=== PATIENT | male | born 1960 | race African-American/Black ===

== ENCOUNTER 2017-11-20 15:08 | Inpatient (IN) | payer OTHER ==
[~2017-11-20] VITALS: Ht 175.3 cm; Wt 99.5 kg
--- NOTE | ~2017-11-20 | EKG ---
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 : 1960 Requested By: Emilee Fontana Order Number: [id number] MD: Miles Argueta Measurements Intervals [place] Rate: 98 P: 35 MD: 143 QRS: 21 QRSD: 94 T: 137 QT: 369 QTc: 472 Interpretive Statements Sinus rhythm Abnrm T, consider ischemia, anterolateral lds Baseline wander in lead(s) V3 Compared to ECG 11/23/2017 10:22:30 No significant change was found Electronically Signed On 11-27-2017 8:35:46 CDT by Miles Argueta [email or web address] <ELECTRONICALLY SIGNED> By: Miles Argueta MD, [facility] 11/27/17 0835 [phone] Miles Argueta MD, [facility] /EPI
--- NOTE | ~2017-11-20 | HC ---
[facility] [place] [address] CONSULTATION Name: LUDMILA GASTON Room #: 215-P [facility] IN M.R.#: [id number] Admission: 11/20/17 Attend Phys: Evelia Jerez Discharge: Date of : 64 Report #: [id number] THIS REPORT FOR: //name// CC: Brian Jerez DATE OF SERVICE: 11/30/2017 HISTORY OF PRESENT ILLNESS: The patient is a 57-year-old male with history of coronary artery disease with prior stents in 2011 and 2016, admitted through [facility] with multivessel coronary artery disease, unstable angina, was transferred to [facility] and underwent coronary bypass grafting x 3 on 11/26. He had some acute renal insufficiency. He had some hypertension and drowsiness. He is doing better now. We are seeing him in rehabilitation medicine consultation. PAST MEDICAL HISTORY: Sarcoidosis on chronic prednisone and on disability. History of diabetes mellitus, hypertension, hyperlipidemia, and exogenous obesity. SOCIAL HISTORY: Lives in a house with and children. No stairs. Is premorbidly independent without gait aids. Disabled, as noted above. Lives in [place]. ALLERGIES: No known drug allergies. HABITS: Former tobacco smoker, 7 cigarettes per day for 10 years, quit in May 2017. Alcohol just on special occasions. FAMILY HISTORY: Significant for heart disease. REVIEW OF SYSTEMS: He does have a history of obstructive sleep apnea. He has had a right shoulder surgery. He does have history of elevated lipids. Did not offer any complaints of chest pain, shortness of breath or abdominal discomfort. No focal extremity pain complaints. PHYSICAL EXAMINATION: GENERAL: A 57-year-old overweight, pleasant male, in no obvious distress. The patient is alert, pleasant. VITAL SIGNS: Last recorded temperature 98, pulse 80, respirations 18, and blood pressure 107/69. HEENT: Appeared to be benign. NEUROLOGIC: Cranial nerves are grossly intact. He has a midline sternal incision. Functional range of motion of the upper extremities, no obvious focal weakness. DTRs are trace to 1. Lower extremities, no focal calf swelling, functional range of motion, strength is grade 4-/5. DTRs are trace to 1. He [address] [address] CONSULTATION Name: LUDMILA GASTON Room #: 215-P [facility] IN .R.#: [id number] Admission: 11/20/17 Attend Phys: Evelia Jerez Discharge: Date of : 64 Report #: [id number] was min assist with sit to stand. Gait was min assist to 12 feet, no assistive device. ASSESSMENT: A 57-year-old -Cub[place] male with the following problems: 1. Medical complexity with generalized debilitation. 2. Multivessel coronary artery disease with unstable angina, status post coronary artery bypass grafting x 3 on 11/26. 3. Acute renal insufficiency. 4. Sarcoidosis. 5. Diabetes mellitus type 2. 6. Hypertension. 7. Hyperlipidemia. 8. Exogenous obesity. PLAN: The patient is hoping to go directly home versus possibly a short acute inpatient rehab stay over in [place]. Discussion with ____hardik noted the patient could stay here for further recuperation through tomorrow or Thursday prior to discharge. He is to continue with the therapies at this time and we will see how he progresses and go from there. We can assist with the rehab contact in [place], if appropriate. Thank you for asking us to assist in this patient's care. By: [id number] Rene Peters MD /nt
--- NOTE | ~2017-11-20 | EKG ---
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
--- NOTE | ~2017-11-20 | CNG ---
[facility] [place] [address] CYTO-NONGYN REPORT PROCEDURE Name: LUDMILA GASTON Room #: 215-P ADM IN M.R.#: [id number] Admission: 11/20/17 Date of : 64 Discharge: Report #: [id number] Path Case #: [id number] CYTOPATHOLOGY REPORT COLLECTION DATE: 12/01/2017 RECEIVED DATE: 12/01/2017 SUBMITTING PHYS: Dr. Evelia Jerez OTHER PHYS: Dr. Brian Gastelum CLINICAL HISTORY: Chest pain, CAD SPECIMEN(S) RECEIVED: A.Pleural fluid, Left * * * * * * * * * * * * FINAL DIAGNOSIS: A. Left Pleural fluid: - No malignant cells identified. Paucicellular specimen with scant cellularity showing rare acute and chronic inflammatory cells. No definitive mesothelial cells identified. PATHOLOGIST: Rocio Carver M.D. REPORT ELECTRONICALLY SIGNED BY: Rocio Carver M.D. DATE/TIME: 12/02/2017 12:11 * * * * * * * * * * * * GROSS PATHOLOGY: A. Pleural fluid, Left: The specimen is submitted unfixed, labeled "Ludmila Gaston". Received by the Cytology Department is 32 mL of cloudy red fluid. One ThinPrep slide and a formalin fixed cell block were prepared. (mm 12.01.2017) BUSINESS OPERATIONS COORDINATOR(S): KENDY Marinelli([facility]) INITIAL CPT CODE(S): A; 43870, 95860 Professional services performed by [facility] at [facility] [address], [place] [address] Technical services performed by [facility] at [address] [place] [address]., [address], [place] [address]. [facility] [address] [place] [address], [facility] [address] [place], [place] [address] [place] [address] [place] [address] CYTO-NONGYN REPORT PROCEDURE Name: LUDMILA GASTON Room #: 215-P ADM IN M.R.#: [id number] Admission: 11/20/17 Date of : 64 Discharge: Report #: [id number] Path Case #: [id number] PHONE: [phone] DIRECTOR: Gonzales Gonzalez M.D. * * * END OF REPORT * * *
--- NOTE | ~2017-11-20 | 2DMMODE ---
[facility] [address] [address] 2 D/M-MODE ECHOCARDIOGRAM Name: LUDMILA GASTON Room #: 209-P ADM IN .R.#: [id number] Admission: 11/20/17 Attend Phys: Evelia Emery Discharge: Date of : 64 Date of Service: 11/24/17 0830 Report #: [id number] THIS REPORT FOR: //name// APPROVED REPORT Study performed: 11/23/2017 12:19:40 EXAM: Comprehensive 2D, Doppler, and color-flow Echocardiogram Patient Location: Echo lab Room #: 209 Status: routine BSA: 2.16 HR: 55 bpm BP: 104/71 mmHg Rhythm: NSR Other Information Study Quality: Adequate Indications Pre-Op CABG. Hx: CAD, stent, HTN, HLP, DM, tob abuse 2D Dimensions RVDd: 34.95 mm LVEF(%): 49.35 (>50%) IVSd: 12.79 (7-11mm) LVOT Diam: 22.39 (18-24mm) LVDd: 53.43 mm PWd: 9.96 (7-11mm) Ascending Ao: 37.81 (22-36mm) LVDs: 39.96 (25-40mm) Aortic Root: 35.53 mm Rich's LVEF: 49.35 % Volumes Left Atrial Volume (Systole) Single Plane 4CH: 42.50 mL Single Plane 2CH: 62.01 mL LA ESV Index: 27.00 mL/m2 Aortic Valve AoV Peak Jt.: 1.42 m/s AO Peak Gr.: 8.08 mmHg LVOT Max P.75 mmHg LVOT Max V: 0.97 m/s ALY Vmax: 2.68 cm2 Mitral Valve E/A Ratio: 0.9 MV Decel. Time: 297.79 ms [facility] [address] [address] 2 D/M-MODE ECHOCARDIOGRAM Name: LUDMILA GASTON Room #: 209-P [facility] IN ..#: [id number] Admission: 11/20/17 Attend Phys: Evelia Emery Discharge: Date of : 64 Date of Service: 11/24/17 0830 Report #: [id number] MV E Max Jt.: 0.58 m/s MV A Jt.: 0.65 m/s MV PHT: 86.36 ms IVRT: 92.27 ms Pulmonary Valve PV Peak Jt.: 0.83 m/s PV Peak Gr.: 2.77 mmHg Pulmonary Vein P Vein S: 0.67 m/s P Vein D: 0.37 m/s P Vein S/D Ratio: 1.81 Tricuspid Valve TR Peak Jt.: 2.19 m/s RAP Estimate: 5.00 mmHg TR Peak Gr.: 19.21 mmHg PA Pressure: 24.00 mmHg Left Ventricle The left ventricle is normal size. Severe hypokinesis of anteroseptum and mild basal inferior hypokinesis. Mild to moderate concentric left ventricular hypertrophy. Left ventricular systolic function is normal. LVEF is 40%. Mild diastolic dysfunction is present (impaired relaxation pattern). Right Ventricle The right ventricle is normal size. The right ventricular systolic function is normal. Atria The left atrium size is normal. The right atrium size is normal. Aortic Valve Aortic valve is mildly calcified. No aortic regurgitation is present. There is no aortic valvular stenosis. Mitral Valve The mitral valve is normal in structure. There is no mitral valve regurgitation noted. No evidence of mitral valve stenosis. Tricuspid Valve The tricuspid valve is normal in structure. Trace tricuspid regurgitation. Estimated PAP is 25mmHg. Pulmonic Valve [address] [address] 2 D/M-MODE ECHOCARDIOGRAM Name: MARILINLUDMILA Room #: 209-P [facility] IN [facility]#: [id number] Admission: 11/20/17 Attend Phys: Evelia Emery Discharge: Date of : 64 Date of Service: 11/24/17 0830 Report #: [id number] The pulmonary valve is normal in structure. Trace pulmonic regurgitation. Great Vessels The aortic root is normal in size. The ascending aorta is normal in size. IVC is normal in size and collapses >50% with inspiration. Pericardium There is no pericardial effusion. <Conclusion> LVEF is 40%. Severe hypokinesis of anteroseptum and mild basal inferior hypokinesis. Mild diastolic dysfunction is present (impaired relaxation pattern). Aortic valve is mildly calcified. There is no aortic valvular stenosis. No aortic regurgitation is present. The mitral valve is normal in structure. There is no mitral valve regurgitation noted. No evidence of mitral valve stenosis. There is no pericardial effusion. <ELECTRONICALLY SIGNED> By: Magan Mendez MD, FACC 11/24/17829 9 9 Magan Mendez MD, FACC /INF
--- NOTE | ~2017-11-20 | EKG ---
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 : 1960 Requested By: Emilee Fontana Order Number: [id number] MD: Miles Argueta Measurements Intervals [place] Rate: 68 P: 16 [place]: 121 QRS: 20 QRSD: 114 T: 122 QT: 455 QTc: 484 Interpretive Statements Sinus rhythm Abnrm T, probable ischemia, anterolateral lds Baseline wander in lead(s) V6 Compared to ECG 11/23/2017 10:22:30 No significant change was found Electronically Signed On 11-27-2017 8:23:28 CDT by Miles Argueta [email or web address] <ELECTRONICALLY SIGNED> By: Miles Argueta MD, [facility] 11/27/17 0823 [id number] 44 Miles Argueta MD, [facility] /EPI
[~2017-11-20 15:08] MED LIST: ASPIR 8181 MG PO; BACTRIM DS TAB1 EACH PO; CARVEDILOL12.5 MG; CITRACAL + BON1 EACH; COQ-10100 MG; JANUMET 50-1,01 EACH PO; LEVAQUIN 500 M500 M2 PO; LIPITOR10 MG PO; LISINOPRIL10 MG PO; METFORMIN HCL500 MG PO; NORCO 5-325 TA1 EACH PO; NORVASC5 MG; OMEGA-31000 M1; OSTERA TABLET1 EAC1; PLAVIX 75 MG TA75 M1 PO; PREDNISONE 10 M10 M1 PO; RANEXA500 MG; TRAMADOL 50 MG50 MG PO; UNICOMPLEX M TA1 TA1
[2017-11-20 21:08] VITALS: BP 104/73
[2017-11-21 00:23] VITALS: BP 99/64
[2017-11-21 05:01] VITALS: BP 104/71
[2017-11-21 08:00] VITALS: BP 99/67
[2017-11-21] MEDS ORDERED: PREDNISONE 5 MG5 M1 PO (09:49)
[2017-11-21 12:00] VITALS: BP 114/71
[2017-11-21 15:50] VITALS: BP 100/67
[2017-11-21 20:33] VITALS: BP 120/82
[2017-11-22 04:42] VITALS: BP 97/66
[2017-11-22 08:30] VITALS: BP 104/69
[2017-11-22 20:05] VITALS: BP 103/74
[2017-11-23] VITALS (10 sets, daily range): BP systolic 65–129; BP diastolic 35–97
[2017-11-23 04:19] LABS: ABSOLUTE NEUTROPHILS 3.9 thou/uL (1.4-8.2); BASOPHILS 0.3 % (0.0-2.0); EOSINOPHILS 3.4 % (0.0-3.0); HEMOGLOBIN 12.4 gm/dL (14.0-18.0); MCH 25.5 pg (26.0-34.0); MCHC 33.6 g/dL (28.0-37.0); MCV 75.7 fL (80.0-100.0); MONOCYTES 11.6 % (1.0-8.0); PLATELET COUNT 194 thou/uL (150-400); POLYS 68.7 % (36.0-66.0); RBC 4.88 mil/uL (4.50-6.00); RDW 15.3 % (10.5-14.5); WBC 5.7 thou/uL (4.0-11.0)
[2017-11-23 04:25] LABS: CALCIUM 9.3 mg/dL (8.5-10.1); MAGNESIUM 1.7 mg/dL (1.8-2.4); POTASSIUM 3.9 mmol/L (3.5-5.1)
[2017-11-23 11:46] LABS: APTT 32.2 Seconds (24.5-32.8); PROTIME 10.7 Seconds (9.3-11.4)
[2017-11-23 14:29] LABS: URINE BILIRUBIN NEGATIVE (Negative); URINE BLOOD NEGATIVE (Negative); URINE CLARITY CLEAR; URINE COLOR YELLOW; URINE GLUCOSE-RANDOM* NEGATIVE (Negative); URINE KETONES NEGATIVE (Negative); URINE LEUKOCYTES-REFLEX NEGATIVE (Negative); URINE NITRITE-REFLEX NEGATIVE (Negative); URINE PROTEIN (DIPSTICK) NEGATIVE (Negative); URINE UROBILINOGEN 0.2 E.U./dl (0.2-1.0)
[2017-11-24 04:55] VITALS: BP 120/81
[2017-11-24 06:32] LABS: ALBUMIN 3.3 g/dL (3.4-5.0); CALCIUM 8.9 mg/dL (8.5-10.1); CREATININE 0.9 mg/dL (0.7-1.3); POTASSIUM 4.2 mmol/L (3.5-5.1); TOTAL BILIRUBIN 0.6 mg/dL (<0.1-1.0); TOTAL PROTEIN 6.6 g/dL (6.4-8.2)
[2017-11-24 14:13] LABS: GLYCOHEMOGLOBIN (HGB A1C) 6.9 % (4.8-5.6)
[2017-11-24 15:09] VITALS: BP 123/83
[2017-11-24 19:34] VITALS: BP 116/68
[2017-11-25 04:25] VITALS: BP 128/76
[2017-11-25 07:49] VITALS: BP 141/81
[2017-11-25 12:05] VITALS: BP 124/78
[2017-11-25 15:45] VITALS: BP 118/66
[2017-11-25 20:52] VITALS: BP 129/76
[2017-11-26] VITALS (17 sets, daily range): BP systolic 76–128; BP diastolic 49–90
[2017-11-26 03:40] LABS: HEMATOCRIT 34.1 % (42.0-52.0); HEMOGLOBIN 11.3 gm/dL (14.0-18.0); MCH 25.2 pg (26.0-34.0); MCHC 33.1 g/dL (28.0-37.0); MCV 76.1 fL (80.0-100.0); PLATELET COUNT 190 thou/uL (150-400); RBC 4.48 mil/uL (4.50-6.00); WBC 4.1 thou/uL (4.0-11.0)
[2017-11-26 04:02] LABS: ALBUMIN 3.1 g/dL (3.4-5.0); CALCIUM 8.8 mg/dL (8.5-10.1); CREATININE 0.9 mg/dL (0.7-1.3); MAGNESIUM 1.9 mg/dL (1.8-2.4); POTASSIUM 3.4 mmol/L (3.5-5.1); TOTAL BILIRUBIN 0.6 mg/dL (<0.1-1.0); TOTAL PROTEIN 6.8 g/dL (6.4-8.2)
[2017-11-26 06:10] LABS: ABSOLUTE NEUTROPHILS 2.7 thou/uL (1.4-8.2); LARGE PLATELETS OCCASIONAL; MYELOCYTES 2 %
[2017-11-26 13:11] LABS: HEMATOCRIT 23.8 % (42.0-52.0); MCH 25.6 pg (26.0-34.0); MCHC 33.6 g/dL (28.0-37.0); MCV 76.3 fL (80.0-100.0); RBC 3.11 mil/uL (4.50-6.00); RDW 14.7 % (10.5-14.5); WBC 10.7 thou/uL (4.0-11.0)
[2017-11-26 13:26] LABS: FIBRINOGEN 238.7 mg/dL (210-360); INR 1.2
[2017-11-26 13:28] LABS: PROTIME 11.9 Seconds (9.3-11.4)
[2017-11-26 13:57] LABS: POC BE 3 mmol/L (-2.0 to +3.0); POC CA IONIZED 4.2 mg/dL (4.5-5.3); POC GLUCOSE 183 mg/dL (70-99); POC HCO3 26.9 mmol/L (22.0-26.0); POC HEMOGLOBIN 8.8 g/dL (14.0-18.0); POC POTASSIUM 4.4 mmol/L (3.5-5.1); POC SODIUM 139 mmol/L (136-145); POC pCO2 36.2 mmHg (35.0-45.0); POC pH 7.478 (7.360-7.450)
[2017-11-26 13:57] LABS: POC BE 2 mmol/L (-2.0 to +3.0); POC CA IONIZED 6.1 mg/dL (4.5-5.3); POC GLUCOSE 147 mg/dL (70-99); POC HCO3 27.1 mmol/L (22.0-26.0); POC HEMOGLOBIN 8.2 g/dL (14.0-18.0); POC POTASSIUM 3.6 mmol/L (3.5-5.1); POC SODIUM 141 mmol/L (136-145); POC pCO2 43.4 mmHg (35.0-45.0); POC pH 7.403 (7.360-7.450)
[2017-11-26 13:57] LABS: POC BE 5 mmol/L (-2.0 to +3.0); POC CA IONIZED 4.7 mg/dL (4.5-5.3); POC GLUCOSE 177 mg/dL (70-99); POC HCO3 28.5 mmol/L (22.0-26.0); POC HEMOGLOBIN 10.2 g/dL (14.0-18.0); POC POTASSIUM 3.7 mmol/L (3.5-5.1); POC SODIUM 142 mmol/L (136-145); POC pH 7.451 (7.360-7.450)
[2017-11-26 13:57] LABS: POC BE 6 mmol/L (-2.0 to +3.0); POC CA IONIZED 4.7 mg/dL (4.5-5.3); POC GLUCOSE 163 mg/dL (70-99); POC HCO3 29.7 mmol/L (22.0-26.0); POC HEMOGLOBIN 10.5 g/dL (14.0-18.0); POC POTASSIUM 3.8 mmol/L (3.5-5.1); POC SODIUM 141 mmol/L (136-145); POC pCO2 39.5 mmHg (35.0-45.0); POC pH 7.484 (7.360-7.450)
[2017-11-26 14:02] LABS: POC BE 2 mmol/L (-2.0 to +3.0); POC GLUCOSE 160 mg/dL (70-99); POC HCO3 27.1 mmol/L (22.0-26.0); POC HEMOGLOBIN 7.8 g/dL (14.0-18.0); POC POTASSIUM 3.7 mmol/L (3.5-5.1); POC SODIUM 139 mmol/L (136-145); POC pCO2 43.4 mmHg (35.0-45.0); POC pH 7.404 (7.360-7.450)
[2017-11-26 14:02] LABS: POC BE 4 mmol/L (-2.0 to +3.0); POC CA IONIZED 4.5 mg/dL (4.5-5.3); POC GLUCOSE 173 mg/dL (70-99); POC HCO3 27.8 mmol/L (22.0-26.0); POC HEMOGLOBIN 8.8 g/dL (14.0-18.0); POC POTASSIUM 3.8 mmol/L (3.5-5.1); POC SODIUM 143 mmol/L (136-145); POC pCO2 41.6 mmHg (35.0-45.0); POC pH 7.433 (7.360-7.450)
[2017-11-26 14:02] LABS: POC BE 1 mmol/L (-2.0 to +3.0); POC CA IONIZED 5.9 mg/dL (4.5-5.3); POC GLUCOSE 137 mg/dL (70-99); POC HCO3 26.4 mmol/L (22.0-26.0); POC HEMOGLOBIN 9.2 g/dL (14.0-18.0); POC POTASSIUM 3.8 mmol/L (3.5-5.1); POC SODIUM 142 mmol/L (136-145); POC pCO2 43.4 mmHg (35.0-45.0); POC pH 7.392 (7.360-7.450)
[2017-11-26 14:02] LABS: POC BE 2 mmol/L (-2.0 to +3.0); POC CA IONIZED 4.5 mg/dL (4.5-5.3); POC GLUCOSE 182 mg/dL (70-99); POC HCO3 26.1 mmol/L (22.0-26.0); POC HEMOGLOBIN 8.8 g/dL (14.0-18.0); POC POTASSIUM 3.7 mmol/L (3.5-5.1); POC SODIUM 142 mmol/L (136-145); POC pCO2 39.9 mmHg (35.0-45.0); POC pH 7.423 (7.360-7.450)
[2017-11-26 14:56] LABS: HEMATOCRIT 29.8 % (42.0-52.0); MCH 25.8 pg (26.0-34.0); MCHC 33.8 g/dL (28.0-37.0); MCV 76.3 fL (80.0-100.0); RBC 3.9 mil/uL (4.50-6.00); RDW 15.1 % (10.5-14.5); WBC 9.8 thou/uL (4.0-11.0)
[2017-11-26 14:58] LABS: HEMOGLOBIN 10.1 gm/dL (14.0-18.0)
[2017-11-26 15:02] LABS: CALCIUM 9.5 mg/dL (8.5-10.1); POTASSIUM 4.1 mmol/L (3.5-5.1)
[2017-11-26 15:09] LABS: INR 1.1
[2017-11-26 15:10] LABS: APTT 33.1 Seconds (24.5-32.8)
[2017-11-26 15:20] LABS: BE(vivo) -2.7 mmol/L (-2 to +3); HCO3 22.8 mmol/L (22.0-26.0); PO2 96.1 mmHg (80.0-100.0); pH 7.352 (7.360-7.450)
[2017-11-26 18:58] LABS: BE(vivo) -2.9 mmol/L (-2 to +3); HCO3 21.5 mmol/L (22.0-26.0); PCO2 35.9 mmHg (35.0-45.0); PO2 90.7 mmHg (80.0-100.0); pH 7.396 (7.360-7.450)
[2017-11-26 19:43] LABS: BE(vivo) -5.3 mmol/L (-2 to +3); HCO3 19.8 mmol/L (22.0-26.0); PCO2 37.1 mmHg (35.0-45.0); PO2 96.6 mmHg (80.0-100.0); pH 7.346 (7.360-7.450); sO2 97.1 % (92.0-98.0)
[2017-11-26 22:54] LABS: BE(vivo) -0.7 mmol/L (-2 to +3); HCO3 23.7 mmol/L (22.0-26.0); PCO2 37.4 mmHg (35.0-45.0); PO2 140.3 mmHg (80.0-100.0); pH 7.419 (7.360-7.450); sO2 98.8 % (92.0-98.0)
[2017-11-27] VITALS (17 sets, daily range): BP systolic 97–118; BP diastolic 56–82
[2017-11-27 04:23] LABS: CALCIUM 8.9 mg/dL (8.5-10.1); CREATININE 1.4 mg/dL (0.7-1.3); MAGNESIUM 1.8 mg/dL (1.8-2.4)
[2017-11-27 04:27] LABS: POTASSIUM 4.1 mmol/L (3.5-5.1)
[2017-11-27 04:30] LABS: HEMATOCRIT 22.7 % (42.0-52.0); HEMOGLOBIN 7.6 gm/dL (14.0-18.0); MCH 25.4 pg (26.0-34.0); MCHC 33.5 g/dL (28.0-37.0); MCV 75.9 fL (80.0-100.0); RBC 2.99 mil/uL (4.50-6.00); RDW 14.8 % (10.5-14.5); WBC 9.5 thou/uL (4.0-11.0)
[2017-11-27 14:52] LABS: BE(vivo) -0.8 mmol/L (-2 to +3); HCO3 23.1 mmol/L (22.0-26.0); PCO2 34.6 mmHg (35.0-45.0); PO2 57.4 mmHg (80.0-100.0); pH 7.442 (7.360-7.450); sO2 91.2 % (92.0-98.0)
[2017-11-27 20:39] LABS: BE(vivo) -1.8 mmol/L (-2 to +3); HCO3 21.7 mmol/L (22.0-26.0); PCO2 31.9 mmHg (35.0-45.0); PO2 58.7 mmHg (80.0-100.0); sO2 91.9 % (92.0-98.0)
[2017-11-28] VITALS (23 sets, daily range): BP systolic 84–141; BP diastolic 67–107
[2017-11-28 05:42] LABS: HEMATOCRIT 24.6 % (42.0-52.0); HEMOGLOBIN 8.3 gm/dL (14.0-18.0); MCH 25.7 pg (26.0-34.0); MCHC 33.5 g/dL (28.0-37.0); MCV 76.6 fL (80.0-100.0); RBC 3.22 mil/uL (4.50-6.00); RDW 15.6 % (10.5-14.5); WBC 13.4 thou/uL (4.0-11.0)
[2017-11-28 05:59] LABS: CALCIUM 9.3 mg/dL (8.5-10.1); CREATININE 1.3 mg/dL (0.7-1.3); MAGNESIUM 2.1 mg/dL (1.8-2.4); POTASSIUM 4.4 mmol/L (3.5-5.1)
[2017-11-28 15:08] LABS: BE(vivo) 1.8 mmol/L (-2 to +3); HCO3 25.7 mmol/L (22.0-26.0); PO2 60.4 mmHg (80.0-100.0); pH 7.459 (7.360-7.450); sO2 92.5 % (92.0-98.0)
[2017-11-29] VITALS (14 sets, daily range): BP systolic 108–142; BP diastolic 70–91
[2017-11-29 06:27] LABS: HEMATOCRIT 22.6 % (42.0-52.0); HEMOGLOBIN 7.6 gm/dL (14.0-18.0); MCHC 33.8 g/dL (28.0-37.0); MCV 76.8 fL (80.0-100.0); RBC 2.94 mil/uL (4.50-6.00); RDW 15.5 % (10.5-14.5); WBC 12.9 thou/uL (4.0-11.0)
[2017-11-29 06:41] LABS: CALCIUM 9.2 mg/dL (8.5-10.1); CREATININE 1.1 mg/dL (0.7-1.3)
[2017-11-29 15:01] LABS: URINE BILIRUBIN NEGATIVE (Negative); URINE BLOOD 2+ (Negative); URINE CLARITY CLEAR; URINE COLOR YELLOW; URINE GLUCOSE-RANDOM* TRACE (Negative); URINE KETONES NEGATIVE (Negative); URINE LEUKOCYTES-REFLEX NEGATIVE (Negative); URINE NITRITE-REFLEX NEGATIVE (Negative); URINE PROTEIN (DIPSTICK) NEGATIVE (Negative); URINE UROBILINOGEN 0.2 E.U./dl (0.2-1.0)
[2017-11-29 15:11] LABS: BACTERIA-REFLEX 1-9 Few /HPF (None Seen); CASTS None Seen /LPF (None Seen); CRYSTALS None Seen /LPF (None Seen); SQUAMOUS None Seen /LPF (0-3); URINE RBC 3-10 Few /HPF (0-2); URINE WBC-REFLEX 0-5 Rare /HPF (0-5)
[2017-11-30] VITALS (8 sets, daily range): BP systolic 107–142; BP diastolic 69–93
[2017-11-30 05:19] LABS: BASOPHILS 0.1 % (0.0-2.0); RBC 2.58 mil/uL (4.50-6.00); WBC 12.5 thou/uL (4.0-11.0)
[2017-11-30 05:21] LABS: ABSOLUTE NEUTROPHILS 11.4 thou/uL (1.4-8.2); HEMOGLOBIN 6.6 gm/dL (14.0-18.0); LYMPHOCYTES 3.1 % (24.0-44.0); MCH 25.5 pg (26.0-34.0); MCHC 33.3 g/dL (28.0-37.0); MCV 76.6 fL (80.0-100.0); MONOCYTES 6.3 % (1.0-8.0); PLATELET COUNT 194 thou/uL (150-400); POLYS 90.5 % (36.0-66.0); RDW 15.1 % (10.5-14.5)
[2017-11-30 05:33] LABS: HEMATOCRIT 19.7 % (42.0-52.0)
[2017-11-30 05:34] LABS: CALCIUM 9.3 mg/dL (8.5-10.1); CREATININE 1.2 mg/dL (0.7-1.3); POTASSIUM 3.9 mmol/L (3.5-5.1)
[2017-12-01 04:50] VITALS: BP 132/90
[2017-12-01 05:07] LABS: HEMATOCRIT 25.5 % (42.0-52.0); HEMOGLOBIN 8.5 gm/dL (14.0-18.0); MCH 25.7 pg (26.0-34.0); MCHC 33.4 g/dL (28.0-37.0); MCV 76.9 fL (80.0-100.0); PLATELET COUNT 242 thou/uL (150-400); RBC 3.31 mil/uL (4.50-6.00); RDW 17.9 % (10.5-14.5); WBC 10.6 thou/uL (4.0-11.0)
[2017-12-01 07:11] LABS: ABSOLUTE NEUTROPHILS 8.7 thou/uL (1.4-8.2); ANISOCYTOSIS 1+
[2017-12-01 07:40] VITALS: BP 167/110
[2017-12-01 11:26] LABS: CLARITY TURBID; COLOR RED; SOURCE LEFT CHEST; TOTAL VOLUME 64 mL
[2017-12-01 11:29] LABS: BF NUCLEATED CELLS 1687; BF RBC 699756
[2017-12-01 11:40] VITALS: BP 132/90
[2017-12-01 11:59] LABS: BF MACROPHAGE 7; BF NEUTROPHILS 52
[2017-12-01 12:46] LABS: SOURCE LEFT CHEST
[2017-12-01 15:50] VITALS: BP 110/80
[2017-12-01 20:52] VITALS: BP 117/55
[2017-12-02 03:46] LABS: CALCIUM 9.1 mg/dL (8.5-10.1); CREATININE 1.1 mg/dL (0.7-1.3); MAGNESIUM 1.9 mg/dL (1.8-2.4); POTASSIUM 3.7 mmol/L (3.5-5.1)
[2017-12-02 04:38] LABS: HEMATOCRIT 27.5 % (42.0-52.0); HEMOGLOBIN 9.1 gm/dL (14.0-18.0)
[2017-12-02 04:45] VITALS: BP 128/81
[2017-12-02 07:32] VITALS: BP 123/89
[2017-12-02 09:19] VITALS: BP 123/89
[2017-12-02 11:57] VITALS: BP 126/82
[2017-12-02] MEDS ORDERED: CARVEDILOL3.125 MG PO (12:27)
[2017-12-02] MEDS ORDERED: ASA5UEC PO (12:27)
[2017-12-02] MEDS ORDERED: PACERONE 200 M200 M1 PO (12:27)
[2017-12-02] MEDS ORDERED: HYDROCODONE-AP1 EAC6 PO (12:27)
[2017-12-02] MEDS ORDERED: LISINOPRIL5 MG PO (12:27)
[2017-12-02 12:44] VITALS: BP 123/89
[2017-12-02 16:08] LABS: BODY FLUID ALBUMIN 1.9 g/dL (()); BODY FLUID AMYLASE 35 U/L (()); BODY FLUID GLUCOSE 175 mg/dL (()); BODY FLUID LDH 726 IU/L (()); BODY FLUID PROTEIN 3.1 g/dL (())
== END 2017-12-02 14:09 | disposition home health service (06) | DRG 235 ==
LOC: 2N 15:08 → TBA 11-26 08:24 → ICU 11-26 14:59 → 2N 11-29 17:17 → ENTRNSPT 12-02 13:53 → EDTRNSPTSTS 12-02 13:56 → 2N 12-02 14:09
PROVIDERS: Hospitalist; Internal Medicine; Internal Medicine Cardiovascular Disease; Nurse Practitioner; Thoracic Surgery (Cardiothoracic Vascular Surgery)
DX: I25.110 Atherosclerotic heart disease of native coronary artery with unstable angina pectoris (principal); E43 Unspecified severe protein-calorie malnutrition; N17.9 Acute kidney failure, unspecified; D62 Acute posthemorrhagic anemia; D86.9 Sarcoidosis, unspecified; E11.9 Type 2 diabetes mellitus without complications; E78.5 Hyperlipidemia, unspecified; G47.33 Obstructive sleep apnea (adult) (pediatric); I25.5 Ischemic cardiomyopathy; E66.09 Other obesity due to excess calories; Z68.32 Body mass index [BMI] 32.0-32.9, adult; Z95.5 Presence of coronary angioplasty implant and graft; Z87.891 Personal history of nicotine dependence; Z79.02 Long term (current) use of antithrombotics/antiplatelets; Z23 Encounter for immunization; Z79.51 Long term (current) use of inhaled steroids; Z79.82 Long term (current) use of aspirin; Z79.899 Other long term (current) drug therapy; Z82.49 Family history of ischemic heart disease and other diseases of the circulatory system
CPT/HCPCS: 10078; 10081; 10797; 47297; 50010; 50249; 50409; 50456; 50497; 50668; 51301; 52131; 52190; 52259; 52314; 53327; 53358; 54118; 55340; 55501; 56524; 56525; 56526; 56527; 56528; 56531; 56534; 56639; 56668; 56760; 56898; 57093; 62110; 62900; 83006

== ENCOUNTER → 2017-12-09 | Outpatient (CLI) | payer OTHER ==
[~2017-12-09] MED LIST changes: +ASA5UEC PO; +CARVEDILOL3.125 MG PO; +HYDROCODONE-AP1 EAC6 PO; +LISINOPRIL5 MG PO; +PACERONE 200 M200 M1 PO; +PREDNISONE 5 MG5 M1 PO
== END ==
LOC: RAD 12:46
DX: J98.11 Atelectasis (principal); J98.4 Other disorders of lung; J84.10 Pulmonary fibrosis, unspecified; Z95.1 Presence of aortocoronary bypass graft